=== PATIENT | female | born 1995 | race Caucasian/White ===

== ENCOUNTER 2021-11-10 05:49 | Emergency (ER) | payer OTHER ==
--- OUTSIDE RECORDS SUMMARY | 2021-11-10 05:52 | XMS REPORT | Continuity of Care Document ---
:1995 Author Organization [facility] t Address [address] [place] [address] Care Team Providers Name Role Phone Nicolle Campbell Primary Care Physician NICOLLE CAMPBELL Attending Clinician Unavailable Abiel ALBARADO, Luis Carlos Attending Clinician Unavailable Only, Db Test Attending Clinician Unavailable Cassie SNOWBOARD INSTRUCTOR, J Attending Clinician KIET ROSSI Attending Clinician Unavailable Nicolle Campbell Attending Clinician Lab, Fam Pob I Attending Clinician Unavailable Griffin MATTHEWS Attending Clinician Unavailable Doctor Unassigned, Name Attending Clinician Unavailable PAPI MOLINA Attending Clinician Unavailable SINA LOWERY Attending Clinician Unavailable Dangelo BELLO Attending Clinician Tech, Cardio Fac Attending Clinician Unavailable 1, Cardio Fac Room Attending Clinician Unavailable Lico BELLO, K.H. Attending Clinician NICOLLE CAMPBELL Admitting Clinician Unavailable PAPI MOLINA Admitting Clinician Unavailable Payers Payer Name Policy Type Policy Number Effective Date Expiration Date Jeffrey cloud [employer] II [id number] 2018 00:00:00 Problems Condition Condition Condition Status Onset Resolution Last Treating Co mments Source Name Details Category Date Date Treatment Clinician Date Endometrio Endometrio Disease Active U nivers sis sis 6-06 ity of 00:00: [place] 00 [facility] Allergic Allergic Disease Active 2015-07 Unive rs contact contact 0-13 ity of dermatitis dermatitis [place] , , 00 Medical unspecifie unspecifie Br anch d trigger d trigger Acne Acne Disease Active Univers vulgaris vulgaris 2-03 ity of 00:00: [place] 00 [facility] Allergies, Adverse Reactions, Alerts Allergy Allergy Status Severity Reaction(s) Onset Inactive Treating Comm ents Source Name Type Date Date Clinician Sulfa Propensi Active Nausea 2014-07 Univers (Sulfona ty to and/or 1-17 ity of mide adverse Vomiting 00:00: [place] Antibiot reaction 00 Medica l ics) s Branch SULFA Drug Active N/V 2014-07 Univers (SULFONA Class 1-17 ity of MIDE 00:00: [place] ANTIBIOT 00 Medical ICS) Branch Social History Social Habit Start Date Stop Date Quantity Comments Source Exposure to Yes [facility] SARS-CoV-2 [facility] (event) [place] Tobacco use and 2019-06-29 2019-06-29 Never used Universit y of exposure 00:00:00 00:00:00 [facility] Alcohol intake 2019-06-29 2019-06-29 Current drinker Unive rsity of 00:00:00 00:00:00 of alcohol [facility] (finding) [place] Alcohol Comment 2016-02-20 2016-02-20 occ Universit y of 00:00:00 00:00:00 [facility] Sex Assigned At [birth year] [facility] 00:00:00 00:00:00 Smoking Status Start Date Stop Date Source [facility] Medications Ordered Filled Start Stop Current Ordering Indication Dosage Frequency Signature Comments Components Source Medication Medication Date Date Medication? Clinician (SIG) Name Name sulfur 2020-0 2020- No 5mL Univers hexafluorid 07-28 ity of e microsphr 17:15: 14:45 [place] (LUMASON) 00 :00 Medical injection 5 Branch mL sulfur 2020-0 2020- No 5mL 5 mL, Univers hexafluorid 07-28 Intravenou i ty of e microsphr 17:15: 14:45 s, ONCE, 1 [place] (LUMASON) 00 :00 dose, Wed Medic al injection 5 07/28/19 at Br anch mL 1115, Routine levonorgest 2018-07 Yes 1{tbl} Take 1 Tab Univers rel-ethinyl 2-17 by mouth ity of estradiol 21:56: daily. [place] ([place] [id number],) 0.1-20 Branch mg-mcg per tablet levonorgest 2018-07 Yes 1{tbl} Take 1 Tab Univers rel-ethinyl 2-17 by mouth ity of estradiol 21:56: daily. [place] ([place] [address],) 0.1-20 Branch mg-mcg per tablet levonorgest 2018-07 Yes 1{tbl} Take 1 Tab Univers rel-ethinyl 2-17 by mouth ity of estradiol 21:56: daily. [place] ([place] [address],) 0.1-20 Branch mg-mcg per tablet levonorgest 2018-07 Yes 1{tbl} Take 1 Tab Univers rel-ethinyl 2-17 by mouth ity of estradiol 21:56: daily. [place] ([place] [address],) 0.1-20 Branch mg-mcg per tablet levonorgest 2018-07 Yes 1{tbl} Take 1 Tab Univers rel-ethinyl 2-17 by mouth ity of estradiol 21:56: daily. [place] ([place] [address],) 0.1-20 Branch mg-mcg per tablet levonorgest 2018-07 Yes 1{tbl} Take 1 Tab Univers rel-ethinyl 2-17 by mouth ity of estradiol 21:56: daily. [place] ([place] [address],) 0.1-20 Branch mg-mcg per tablet levonorgest 2018-07 Yes 1{tbl} Take 1 Tab Univers rel-ethinyl 2-17 by mouth ity of estradiol 21:56: daily. [place] ([place] [address],) 0.1-20 Branch mg-mcg per tablet Immunizations Ordered Filled Immunization Date Status Comments [facility] e Immunization Name Name Influenza Virus 2019-02-11 Completed Universit y of Vaccine 00:00:00 [facility] Influenza Virus 2019-02-11 Completed Universit y of Vaccine 00:00:00 [facility] Influenza Virus 2019-02-11 Completed Universit y of Vaccine 00:00:00 [facility] Influenza Virus 2019-02-11 Completed Universit y of Vaccine 00:00:00 [facility] Influenza Virus 2019-02-11 Completed Universit y of Vaccine 00:00:00 [facility] Influenza Virus 2019-02-11 Completed Universit y of Vaccine 00:00:00 [facility] Influenza Virus 2019-02-11 Completed Universit y of Vaccine 00:00:00 [facility] TDAP 2007-07-14 Completed University of 00:00:00 [facility] TDAP 2007-07-14 Completed University of 00:00:00 [facility] Tdap 2007-07-14 Completed University of 00:00:00 [facility] Tdap 2007-07-14 Completed University of 00:00:00 [facility] TDAP 2007-07-14 Completed University of 00:00:00 [facility] TDAP 2007-07-14 Completed University of 00:00:00 [facility] TDAP 2007-07-14 Completed University of 00:00:00 [facility] Vital Signs Vital Name Observation Time Observation Value Comments Source Systolic blood 2019-07-28 14:10:00 117 mm[Hg] Univer sity [facility] Diastolic blood 2019-07-28 14:10:00 81 mm[Hg] [facility] Heart rate 2019-07-28 14:10:00 67 /min [facility] Body height 2019-07-28 14:10:00 167.6 cm [facility] Body weight 2019-07-28 14:10:00 58.06 kg [facility] BMI 2019-07-28 14:10:00 20.66 kg/m2 [facility] Procedures Procedure Date / Time Performed Performing Clinician Sour e CHG US BREAST UNI 2021-01-09 13:35:00 Glory Campbell [facility] REAL TIME WITH IMAGE [facility] LIMITED ECHO ROUTINE 2019-07-28 14:07:52 Dangelo [facility] o f [place] W/DOPPLER COLOR [facility] Branch Encounters Start End Encounter Admission Attending Care Care Encounter Source Date/Time Date/Time Type Type Clinicians Facility Department ID 2020-04-08 Inpatient SHANNAN [facility] [id number] [facility] 14:54:47 , GLORY 2021-03-24 2021-03-24 Telephone SOMMER Beebe [id number] Univers 00:00:00 00:00:00 Paty Aldridge BLAKE [id number] i ty of [facility] [id number] [place] as [phone] [address] 2021-03-22 2021-03-22 Laboratory Only, Jani Db Test [facility] [id number] Univers 18:01:52 18:11:52 Only Laura Matthews [facility] [id number] ity of [place] [id number] Edgar as Pepe?Blea [phone] Nc diczoraida ey [address] [place] [facility] 2021-03-22 2021-03-22 Outpatient R [facility] [id number] Univers 17:55:00 17:55:00 [id number] ity [facility] 2021-03-22 2021-03-22 Outpatient R [facility] [id number] Univers 17:55:00 17:55:00 ity [facility] 2021-02-27 2021-02-27 [facility] [id number] Univers 09:15:00 09:15:00 MICHEAL [id number] [facility] 2021-02-27 2021-02-27 [facility] [id number] Univers 09:15:00 09:15:00 [facility] 2021-01-08 2021-01-08 EXT [facility] Shannan EXT MSRDP [id number] [place] 00:00:00 00:00:00 , Glory GARCIA [id number] Health [facility] [id number] 2020-09-20 2020-09-20 Laboratory Lab, Adc Fam Pob I [facility] [id number] Univers 18:19:44 18:39:44 Only Laura Matthews [facility] [id number] ity of [place] [id number] Edgar as Professio [id number] [address] Office [address] 2020-09-20 2020-09-20 Outpatient R [facility] [id number] Univers 18:20:00 18:20:00 [id number] ity of [facility] 2020-09-20 2020-09-20 Outpatient R CASSIE, [facility] [id number] Univers 18:20:00 18:20:00 LAURA ity o f [facility] 2020-09-20 2020-09-20 Letter Doctor SOMMER [id number] Univers 00:00:00 00:00:00 (Out) Unassigned, BLAKE [id number] ity of [place] [facility] [id number] Edgar as [phone] [address] 2020-04-08 2020-04-10 Inpatient E TRACY, [facility] [id number] [facility] 16:24:00 14:50:00 DAISHA 2020-02-07 2020-02-08 Emergency E BEVERLEY, [facility] [id number] [facility] 21:27:00 01:51:00 LINDSEY 2019-06-29 2019-08-06 Office Dangelo, [facility] [id number] Univers 16:47:15 10:00:55 Visit Samantha Stephen [id number] ity of [place] [id number] [place] Professio [phone] [place] [id number] [facility] 2019-07-28 2019-07-28 Junior Art Director, Adc Cardio Fac [facility] [id number] Univers 07:48:17 08:50:51 Only 1, Adc Cardio Fac [facility] [id number]. [id number] ity of [place] [id number] [place] Professio [phone] [place] [id number] [facility] Results This patient has no known results.
[2021-11-10 06:23] LABS: Urine Blood Negative (Negative); Urine Glucose Negative (Negative); Urine Protein Negative (Negative); Urine Specific Gravity <=1.005 (1.005-1.030); Urine pH 5.5 (5.0-7.0)
[2021-11-10 06:59] LABS: Urine Specific Gravity/Preg 1.005 (1.005-1.030)
[2021-11-10 07:03] LABS: Absolute Lymphocytes (CBC) 2.1 K/uL (0.7-4.9); Hematocrit 42.9 % (36.0-45.0); Lymphocytes % 46.8 % (15.3-44.8); MPV 8.2 fL (7.6-11.3); RBC Red Blood Cell Count 4.77 M/uL (3.86-4.86)
[2021-11-10] MEDS ORDERED: ONDANSETRON 4 MG/2 ML VIAL ONE (07:15)
[2021-11-10] MEDS ORDERED: NA CHLORIDE 0.9% 500 ML ONE (07:15)
[2021-11-10] MEDS ORDERED: MORPHINE 4 MG/ML SYR ONE (07:15)
[2021-11-10 07:16] LABS: Albumin 4.1 g/dL (3.4-5.0); Bilirubin Total 0.5 mg/dL (0.2-1.0); Potassium 3.9 mmol/L (3.5-5.1); Protein, Total 7.8 g/dL (6.4-8.2)
[2021-11-10] MEDS ORDERED: FENTANYL CITR 100 MCG/2 ML ONE (07:57)
--- NOTE | 2021-11-10 09:47 | RAD REPORT ---
EXAM DESCRIPTION: CT - Abdomen Pelvis W Contrast - 11/10/2021 7:34 am CLINICAL HISTORY: LLQ abdominal pain COMPARISON: No comparisons TECHNIQUE: Biphasic, helical CT imaging of the abdomen and pelvis was performed following 100 ml non -ionic IV contrast. No oral contrast administered. All CT scans are performed using dose optimization technique as appropriate and may include automated exposure control or mA/KV adjustment according to patient size. FINDINGS: No suspicious findings in the lung bases. The liver, spleen, and pancreas show no suspicious findings. Gallbladder is absent. There is mild int rahepatic and extrahepatic biliary tree dilatation. Degree of dilatation is not outside of normal ran ge for a post cholecystectomy patient. Duct stones can be occult. Provided history does not indicate that there are any right upper quadrant or biliary obstructive symptoms. Symmetric renal function is seen with no hydronephrosis or suspicious renal mass. No pyelonephritis o r acute parenchymal process. No bladder abnormalities. No adrenal abnormalities. No uterine abnormality seen. Small cysts or follicles are seen on the normal sized ovaries. The ovari es are isodense to adjacent fluid-filled small bowel. A dominant ovarian or adnexal process is not molina spected. History indicates prior endometriosis. Endometriosis cannot be accurately diagnosed with CT imaging. No endometrioma is identified. No gastric dilatation or gastric wall thickening. Numerous fluid-filled nondilated small bowel loops are present. A large amount of stool distends the cecum which is positioned along the midline floor t he pelvis. The appendix is not a clearly distinguishable structure. No indirect evidence for appendic itis. Stool fills but does not dilate the colon from the cecum through the descending colon. Slight w all thickening in the proximal sigmoid colon is believed to be peristalsis artifact. No free air, free fluid or inflammatory stranding. No hernia, mass or bulky lymphadenopathy. No suspicious bony findings. IMPRESSION: Contrast enhanced CT abdomen and pelvis showing no acute or emergent finding. The stool distended cecum is positioned on the floor the pelvis in the appendix cannot be clearly dis tinguished. No indirect evidence for appendicitis on CT imaging. No endometrioma or acute SLEEVER finding. Endometriosis can be present an occult on CT imaging. No acute finding. Constipation pattern is evident in the fluid-filled small bowel loops may be secondary to the large c olonic stool volume or could be a nonspecific enteritis.
--- NOTE | 2021-11-10 10:07 | ER ---
Nurse's Notes [facility] Name: Brigid Portillo Age: 26 yrs Sex: Female : 1995 Arrival Date: 11/10/2021 Time: 05:53 Bed 14 Private MD: Diagnosis: Lower abdominal pain, unspecified;Constipation Presentation: 11/10 06:17 Chief complaint: Patient states: she is having lower abdominal and pelvic pain pt bb states she has severe endometriosis denies vomiting or diarrhea but does have constipation despite OTC remedies. Coronavirus screen: At this time, the client does not indicate any symptoms associated with coronavirus-19. Ebola Screen: No symptoms or risks identified at this time. Initial Sepsis Screen: Does the patient meet any 2 criteria? No. Patient's initial sepsis screen is negative. Does the patient have a suspected source of infection? No. Patient's initial sepsis screen is negative. Risk Assessment: Do you want to hurt yourself or someone else? Patient reports no desire to harm self or others. Onset of symptoms was October 2021. 06:17 Method Of Arrival: Ambulatory bb 06:17 Acuity: DENILSON 3 bb Triage Assessment: 06:32 General: Appears in no apparent distress. Behavior is appropriate for age. ke1 [employer]: 06:20 LMP 10/28/2021 bb Historical: - Home Meds: 06:20 BCP [Active]; bb - PMHx: 06:20 Endometriosis of vagina; bb - PSHx: 06:20 section; Tonsillectomy; Cholecystectomy; hip surgery; laproscopy of abdomen; bb dental; - Immunization history:: Client reports receiving the 2nd dose of the Covid vaccine, Pfizer. - Social history:: Smoking status: Patient denies any tobacco usage or history of. Screenin:29 Abuse screen: Denies threats or abuse. Nutritional screening: No deficits noted. ke1 Tuberculosis screening: No symptoms or risk factors identified. Fall Risk No fall in past 12 months (0 pts). No secondary diagnosis (0 pts). IV access (20 points). Ambulatory Aid- None/Bed Rest/Nurse Assist (0 pts). Gait- Normal/Bed Rest/Wheelchair (0 pts) Mental Status- Oriented to own ability (0 pts). Assessment: 06:28 Pain: Complains of pain in pelvis Pain currently is 5 out of 10 on a pain scale. at ke1 worst was 8 out of 10 on a pain scale. level that patient reports is acceptable is 5 out of 10 on a pain scale. GI: Bowel sounds present X 4 quads. Abd is soft Abdomen is tender to palpation in suprapubic area, right lower quadrant and left lower quadrant. 07:04 General: Appears in no apparent distress. uncomfortable, Behavior is calm, cooperative, jd3 appropriate for age. Pain: Complains of pain in right lower quadrant and left lower quadrant Quality of pain is described as crampy, sharp. Neuro: Level of Consciousness is awake, alert, obeys commands, Oriented to person, place, time, situation. Cardiovascular: Denies chest pain, Capillary refill < 3 seconds Patient's skin is warm and dry. Respiratory: Airway is patent Respiratory effort is even, unlabored, Respiratory pattern is regular, symmetrical, Denies cough, shortness of breath. GI: Abdomen is flat, non-distended, Abd is soft X 4 quads Abdomen is tender to palpation in right lower quadrant and left lower quadrant. : No signs and/or symptoms were reported regarding the genitourinary system. EENT: No signs and/or symptoms were reported regarding the EENT system. Derm: Skin is intact, Skin is dry, Skin is normal, Skin temperature is warm. Musculoskeletal: Circulation, motion, and sensation intact. Range of motion: intact in all extremities. 07:58 Reassessment: Patient appears in no apparent distress at this time. Patient and/or jd3 family updated on plan of care and expected duration. Pain level reassessed. Patient is alert, oriented x 3, equal unlabored respirations, skin warm/dry/pink. pt reporting continued pain. provider notified. new medication order received, see MAR. 09:07 Reassessment: Patient appears in no apparent distress at this time. Patient and/or jd3 family updated on plan of care and expected duration. Pain level reassessed. Patient is alert, oriented x 3, equal unlabored respirations, skin warm/dry/pink. Patient states feeling better. 10:02 Reassessment: Patient appears in no apparent distress at this time. Patient and/or jd3 family updated on plan of care and expected duration. Pain level reassessed. Patient is alert, oriented x 3, equal unlabored respirations, skin warm/dry/pink. provider at beside discussing results and plan of care. Vital Signs: 06:17 BP 141 / 96; Pulse 82; Resp 16 S; Temp 98.3(TE); Pulse Ox 100% on R/A; Weight 58.97 kg bb (R); Height 5 ft. 6 in. (167.64 cm) (R); Pain 5/10; 06:34 BP 130 / 80; Pulse 98; Resp 18; Pulse Ox 100% on R/A; ke1 07:06 BP 122 / 87; Pulse 89; Resp 18 S; Pulse Ox 100% on R/A; jd3 08:18 BP 110 / 71; Pulse 66; Resp 16 S; Pulse Ox 100% on R/A; jd3 08:53 Pain 4/10; jd3 09:07 BP 103 / 57; Pulse 59; Resp 15 S; Pulse Ox 100% on R/A; jd3 10:03 BP 103 / 57; Pulse 62; Resp 16 S; Pulse Ox 100% on R/A; jd3 06:17 Body Mass Index 20.98 (58.97 kg, 167.64 cm) ED Course: 05:53 Patient arrived in ED. kz 06:19 Evangelina Mesa RN is Primary Nurse. ke1 06:19 Triage completed. bb 06:20 Arm band placed on Patient placed in an exam room, on a stretcher, on pulse oximetry. bb 06:25 Inserted saline lock: 20 gauge in right antecubital area, using aseptic technique. ke1 ,using aseptic technique. BY Vera Graham RN. 06:32 Bed in low position. Call light in reach. ke1 06:39 Jimmie Miller MD is Attending Physician. mh7 07:02 Attending Physician role handed off by Jimmie Miller MD kdr 07:02 Sandro Diallo MD is Attending Physician. kdr 07:04 Primary Nurse role handed off by Evangelina Mesa, VERENA jd3 07:04 Vipul Fulton, VERENA is Primary Nurse. jd3 07:07 ED physician to see patient. jd3 07:36 CT Abd/Pelvis - IV Contrast Only In Process Unspecified. EDMS 10:06 Rob Stevens MD is Referral Physician. kdr 10:20 No provider procedures requiring assistance completed. IV discontinued, intact, jd3 bleeding controlled, No redness/swelling at site. Pressure dressing applied. Administered Medications: 07:15 Drug: morphine 4 mg Route: IVP; Site: right antecubital; jd3 07:55 Follow up: Response: No adverse reaction; Pain is unchanged, physician notified; RASS: jd3 Alert and Calm (0) 07:15 Drug: Zofran (Ondansetron) 4 mg Route: IVP; Site: right antecubital; jd3 07:55 Follow up: Response: No adverse reaction jd3 07:15 Drug: NS 0.9% 500 ml Route: IV; Rate: bolus; Site: right antecubital; jd3 07:55 Follow up: Response: No adverse reaction; IV Status: Completed infusion; IV Intake: jd3 500ml 07:58 Drug: fentaNYL (PF) 25 mcg Route: IVP; Site: right antecubital; jd3 08:53 Follow up: Pain 4/10 Adult; Response: No adverse reaction; Pain is decreased; RASS: jd3 Alert and Calm (0) Intake: 07:55 IV: 500ml; Total: 500ml. jd3 Outcome: 10:06 Discharge ordered by . kdr 10:20 Discharged to home ambulatory, with family. jd3 10:20 Condition: stable 10:20 Discharge instructions given to patient, Instructed on discharge instructions, follow up and referral plans. Demonstrated understanding of instructions, follow-up care. 10:21 Patient left the ED. jd3 Signatures: Dispatcher [employer] EDMS Sandro Diallo MD MD kdr Ballard, Brenda RN RN Vipul Garrett RN RN jd3 Holmes, Maurice, MD MD 7 Evangelina Mesa RN RN Liseth Mejia
--- NOTE | 2021-11-10 10:07 | EDPHYS ---
Physician Documentation [facility] Name: Brigid Portillo Age: 26 yrs Sex: Female : 1995 Arrival Date: 11/10/2021 Time: 05:53 Bed 14 Private MD: ED Physician Sandro Diallo HPI: 11/10 08:19 This 26 yrs old Female presents to ER via Ambulatory with complaints of Abdominal Pain. kdr 08:19 The patient presents with abdominal pain in the left lower quadrant. Onset: The kdr symptoms/episode began/occurred yesterday. The symptoms do not radiate. Associated signs and symptoms: none. The symptoms are described as achy, crampy, intermittent, vague. Modifying factors: The symptoms are alleviated by nothing, the symptoms are aggravated by touching the area, walking. Severity of pain: At its worst the pain was moderate severe just prior to arrival, in the emergency department the pain is unchanged. The patient has experienced similar episodes in the past, She has been evaluated for endometriosis with Dr. Ralph. She is also had current bowel issues. The patient has not recently seen a physician. LEGAL COUNSEL: 06:20 LMP 10/28/2021 bb Historical: - Home Meds: 06:20 BCP [Active]; bb - PMHx: 06:20 Endometriosis of vagina; bb - PSHx: 06:20 section; Tonsillectomy; Cholecystectomy; hip surgery; laproscopy of abdomen; bb dental; - Immunization history:: Client reports receiving the 2nd dose of the Covid vaccine, Pfizer. - Social history:: Smoking status: Patient denies any tobacco usage or history of. ROS: 08:19 Constitutional: Negative for fever, chills, and weight loss, Eyes: Negative for injury, kdr pain, redness, and discharge, Neck: Negative for injury, pain, and swelling, Cardiovascular: Negative for chest pain, palpitations, and edema, Respiratory: Negative for shortness of breath, cough, wheezing, and pleuritic chest pain, Back: Negative for injury and pain, : Negative for injury, bleeding, discharge, and swelling, MS/Extremity: Negative for injury and deformity, Skin: Negative for injury, rash, and discoloration, Neuro: Negative for headache, weakness, numbness, tingling, and seizure activity. Psych: Negative for depression, anxiety, suicide ideation, homicidal ideation, and hallucinations, Allergy/Immunology: Negative for hives, rash, and allergies, Endocrine: Negative for neck swelling, polydipsia, polyuria, polyphagia, and marked weight changes, Hematologic/Lymphatic: Negative for swollen nodes, abnormal bleeding, and unusual bruising. 08:19 Abdomen/GI: Positive for abdominal pain, nausea, Negative for diarrhea, constipation, abdominal cramps, abdominal distension, anorexia, black/tarry stool, rectal pain, rectal bleeding, bowel incontinence. Exam: 08:19 Constitutional: This is a well developed, well nourished patient who is awake, alert, kdr and in no acute distress. Head/Face: Normocephalic, atraumatic. Eyes: Pupils equal round and reactive to light, extra-ocular motions intact. Lids and lashes normal. Conjunctiva and sclera are non-icteric and not injected. Cornea within normal limits. Periorbital areas with no swelling, redness, or edema. Neck: Trachea midline, no thyromegaly or masses palpated, and no cervical lymphadenopathy. Supple, full range of motion without nuchal rigidity, or vertebral point tenderness. No Meningismus. Chest/axilla: Normal chest wall appearance and motion. Nontender with no deformity. No lesions are appreciated. Cardiovascular: Regular rate and rhythm with a normal S1 and S2. No gallops, murmurs, or rubs. Normal PMI, no JVD. No pulse deficits. Respiratory: Lungs have equal breath sounds bilaterally, clear to auscultation and percussion. No rales, rhonchi or wheezes noted. No increased work of breathing, no retractions or nasal flaring. Back: No spinal tenderness. No costovertebral tenderness. Full range of motion. Skin: Warm, dry with normal turgor. Normal color with no rashes, no lesions, and no evidence of cellulitis. MS/ Extremity: Pulses equal, no cyanosis. Neurovascular intact. Full, normal range of motion. Neuro: Awake and alert, GCS 15, oriented to person, place, time, and situation. Cranial nerves II-XII grossly intact. Motor strength 5/5 in all extremities. Sensory grossly intact. Cerebellar exam normal. Normal gait. Psych: Awake, alert, with orientation to person, place and time. Behavior, mood, and affect are within normal limits. 08:19 Abdomen/GI: Inspection: abdomen appears normal, Bowel sounds: diminished, in all quadrants, Palpation: soft, mild abdominal tenderness, in the left lower quadrant. Vital Signs: 06:17 BP 141 / 96; Pulse 82; Resp 16 S; Temp 98.3(TE); Pulse Ox 100% on R/A; Weight 58.97 kg bb (R); Height 5 ft. 6 in. (167.64 cm) (R); Pain 5/10; 06:34 BP 130 / 80; Pulse 98; Resp 18; Pulse Ox 100% on R/A; ke1 07:06 BP 122 / 87; Pulse 89; Resp 18 S; Pulse Ox 100% on R/A; jd3 08:18 BP 110 / 71; Pulse 66; Resp 16 S; Pulse Ox 100% on R/A; jd3 08:53 Pain 4/10; jd3 09:07 BP 103 / 57; Pulse 59; Resp 15 S; Pulse Ox 100% on R/A; jd3 10:03 BP 103 / 57; Pulse 62; Resp 16 S; Pulse Ox 100% on R/A; jd3 06:17 Body Mass Index 20.98 (58.97 kg, 167.64 cm) bb MDM: 08:19 Data reviewed: vital signs, nurses notes, lab test result(s), radiologic studies. kdr Counseling: I had a detailed discussion with the patient and/or guardian regarding: the historical points, exam findings, and any diagnostic results supporting the discharge/admit diagnosis, lab results, radiology results, the need for outpatient follow up. 10:06 Patient medically screened. kdr 11/10 06:23 Order name: Urine Dipstick-Ancillary; Complete Time: 09:36 EDMS 11/10 06:24 Order name: Urine --Ancillary (enter results); Complete Time: 09:36 ds4 11/10 06:54 Order name: CBC with Diff; Complete Time: 09:36 bb 11/10 06:54 Order name: CMP; Complete Time: 09:36 bb 11/10 06:54 Order name: Lipase; Complete Time: 09:36 bb 11/10 07:11 Order name: CT Abd/Pelvis - IV Contrast Only; Complete Time: 09:54 kdr 11/10 06:54 Order name: IV Saline Lock; Complete Time: 07:00 bb 11/10 06:54 Order name: Labs collected and sent; Complete Time: 07:07 bb Administered Medications: 07:15 Drug: morphine 4 mg Route: IVP; Site: right antecubital; jd3 07:55 Follow up: Response: No adverse reaction; Pain is unchanged, physician notified; RASS: jd3 Alert and Calm (0) 07:15 Drug: Zofran (Ondansetron) 4 mg Route: IVP; Site: right antecubital; jd3 07:55 Follow up: Response: No adverse reaction jd3 07:15 Drug: NS 0.9% 500 ml Route: IV; Rate: bolus; Site: right antecubital; jd3 07:55 Follow up: Response: No adverse reaction; IV Status: Completed infusion; IV Intake: jd3 500ml 07:58 Drug: fentaNYL (PF) 25 mcg Route: IVP; Site: right antecubital; jd3 08:53 Follow up: Pain 4/10 Adult; Response: No adverse reaction; Pain is decreased; RASS: jd3 Alert and Calm (0) Disposition Summary: 11/10/21 10:06 Discharge Ordered Location: Home kdr Condition: Stable kdr Problem: new kdr Symptoms: have improved kdr Diagnosis - Lower abdominal pain, unspecified kdr - Constipation kdr Followup: kdr - With: Private Physician - When: 2 - 3 days - Reason: If symptoms return, Further diagnostic work-up, Recheck today's complaints, Continuance of care, Re-evaluation by your physician Followup: kdr - With: Rob Stevens MD - When: 2 - 3 days - Reason: If symptoms return, Further diagnostic work-up, Recheck today's complaints, Continuance of care, Re-evaluation by your physician Discharge Instructions: - Discharge Summary Sheet kdr - Constipation, Adult, [id number] kdr - Abdominal Pain, Adult, [id number] kdr Forms: - Medication Reconciliation Form kdr - Thank You Letter kdr Signatures: Dispatcher [employer] Sandro Benoit MD MD kdr Vera Hall, RN RN bb Vipul Fulton RN RN jd3
[2021-11-10 10:34] VITALS: TEMP 98.3; O2SAT 100
[2021-11-10 10:40] VITALS: BP 103/57
== END 2021-11-10 10:21 | disposition home or self-care (01) ==
LOC: ER 05:49
DX: K59.00 Constipation, unspecified (principal)
CPT/HCPCS: 96361; 85025; 36415; 81025; 81003; 83690; 80053; 74177; 96375; 96374; 99284; Q9967; J3010; J7040; J2405

== ENCOUNTER 2022-07-30 06:09 | Day surgery (SDC) | payer BC ==
[2022-07-25 15:17] LABS: Hematocrit 39.8 % (36.0-45.0); Lymphocytes % 43.9 % (15.3-44.8); MCV 89.1 fL (80-100); MPV 7.8 fL (7.6-11.3); RBC Red Blood Cell Count 4.46 M/uL (3.86-4.86)
[2022-07-25 15:30] LABS: Specific Gravity 1.024 (1.005-1.030); Urine Bacteria <20 /HPF (<20); Urine Bilirubin NEGATIVE (Negative); Urine Blood Negative (Negative); Urine Clarity Clear (Clear); Urine Color Light-Yellow (Yellow); Urine Glucose NEGATIVE (Negative); Urine Mucus Slight /HPF (None Seen); Urine Protein TRACE (Negative); Urine RBC <5 /HPF (None Seen); Urine Urobilinogen Normal (Normal); Urine WBC Clump Rare /HPF (None Seen)
[2022-07-30] MEDS ORDERED: SCOPOLAMINE HYDROBROMIDE PATCH TD ONE (06:16)
[2022-07-30] MEDS ORDERED: Ringers Lactate 1,000 ML IV ONE (06:16)
[2022-07-30 06:45] VITALS: O2SAT 100
[2022-07-30] MEDS ORDERED: propofoL 200 MG/20 ML VIAL IV ONE ×3 (06:48→08:47)
[2022-07-30] MEDS ORDERED: FENTANYL CITR 250 MCG/5 ML ONE (06:49)
[2022-07-30] MEDS ORDERED: MIDAZOLAM HCL 2 MG/2 ML INJ ONE (06:49)
[2022-07-30] MEDS ORDERED: LIDOCAINE 2% MPF 5 ML VIAL ONE (06:49)
[2022-07-30] MEDS ORDERED: CELECOXIB 100 MG CAPSULE ONE (06:49)
[2022-07-30] MEDS ORDERED: dexAMETHasone 10 MG/ML VIAL ONE (06:49)
[2022-07-30] MEDS ORDERED: ONDANSETRON 4 MG/2 ML VIAL ONE ×2 (06:49→09:35)
[2022-07-30] MEDS ORDERED: ROCURONIUM 50 MG/5 ML VIAL IV ONE (06:49)
[2022-07-30] MEDS ORDERED: ACETAMINOPHEN 500 MG TAB ONE (06:50)
[2022-07-30] MEDS: CEFOXITIN SODIUM 1 GM/VIAL ONE ×2 (07:48→08:00)
[2022-07-30] MEDS: BUPIVACAINE 0.25% PF 30 ML VIAL ONE ×2 (07:49→08:09)
[2022-07-30] MEDS ORDERED: METHYLENE BLUE 0.5% 10 ML AMP ONE (08:10)
--- NOTE | 2022-07-30 08:44 | P.OP ---
Date of Service: 07/30/22 Preop diagnosis: Chronic abdominal pain Postop diagnosis: Same Procedure performed: Diagnostic laparoscopy, laparoscopic appendectomy Surgeon: Arnold Mcduffie MD Mate Fishing Vessel: Dr. Camila Butler MD Estimated blood loss: Minimal Specimen: Appendix Findings: As above Anesthesia: General Complications: None Drains: None Fluids and blood products: Nonapplicable Disposition: Dr. Butler continued with a diagnostic laparoscopy for endometrial disease and pelvic adhesions Operative note: Patient brought to the OR placed in the supine position. General anesthesia begun. Patient prepped and draped in usual sterile fashion. Patient was put into lithotomy position by Dr. Pittman for her part of the procedure. Marcaine 0.5% infiltrated locally. 15 blade used to make a 1 cm infraumbilical midline incision. Subcutaneous tissue divided. Fascia identified and divided. #1 Vicryl stay suture placed. Peritoneal cavity e ntered with sharp and blunt dissection. 12 mm trocar placed into the peritoneal cavity under direct vision. 2 5 mm trochars placed into the peritoneal cavity. 1 at the suprapubic region and the other 1 in the left lower quadrant. Laparoscopy revealed some pelvic adhesions. The appendix was in the right lower quadrant. There was no acute inflammation seen. However, given the patient's history a appendectomy was planned upon. Base of the appendix and the mesoappendix clearly identified. Endo SAM stapling device used to divide both structures. Bleeding on the mesoappendix controlled with the vascular clip. Right lower quadrant irrigated. Effluent clear. No evidence of bowel injury or bleeding noted. Dr. Butler will dictate the remaining part of this procedure. CC: Dr. Butler's office
[2022-07-30] MEDS ORDERED: KETOROLAC 30 MG/ML INJ ONE (08:59)
[2022-07-30] MEDS ORDERED: GLYCOPYRROLATE 0.2 MG/ML SYR ONE (08:59)
[2022-07-30] MEDS ORDERED: NEOSTIGMINE 1 MG/ML -5 ML ONE (09:00)
[2022-07-30] MEDS: FENTANYL CITR 100 MCG/2 ML ONE ×2 (09:37→09:57)
[2022-07-30] MEDS ORDERED: IBUPROFEN 200 MG TAB PO PRN (09:39)
[2022-07-30] MEDS ORDERED: PROMETHAZINE INJ 25 MG/ML AMP IV PRN (09:39)
[2022-07-30] MEDS ORDERED: HYDROCODONE/APAP 5/325 MG TAB PO PRN (09:39)
[2022-07-30] MEDS ORDERED: MEPERIDINE HCL 25 MG/ML SYR IM PRN (09:39)
[2022-07-30] MEDS ORDERED: MEPERIDINE HCL 25 MG/ML SYR ONE (09:40)
--- NOTE | 2022-07-30 09:47 | P.BOP ---
Preoperative diagnosis: pelvic pain, h/o endometriosis Postoperative diagnosis: same , left partial tubal occlusion, adhesions Primary procedure: Diag hysteroscopy,laparoscopy,Left salpingolysis, chromotubation Secondary procedure: endo excision, fulgration Other procedure(s): Anay Mcduffie Site Supervising Technical Operator: Nyasia Barron Estimated blood loss: min Specimen: left lat wall, rt USL, left tubal adhesion, appy Findings: scar/mild brownish peritoneal discolorationleft lat wall, Rt USL Complications: None Transferred to: Recovery Room Condition: Good
[2022-07-30] MEDS ORDERED: POLYETHYL GLY 3350 17 GM/DOSE PO SCH (10:00)
[2022-07-30] MEDS ORDERED: HYDROCODONE/APAP 5/325 MG TAB ONE (10:38)
[2022-07-30 11:29] VITALS: BP 100/57; TEMP 97.2
[2022-07-30] MEDS ORDERED: PSYLLIUM HUSK 0.4 GM PO SCH (21:00)
--- NOTE | 2022-07-31 08:03 | OP ---
Date of Procedure: 07/30/2022 Surgeon: Camila Butler MD Claims Configuration Analyst: Nyasia Flores. Preoperative Diagnosis: Pelvic pain, history of endometriosis. Postoperative Diagnoses: Pelvic pain, history of endometriosis, partial left tubal occlusion, left t ubal adhesions, and bowel adhesions. Procedures Performed: 1.Diagnostic hysteroscopy. 2.Diagnostic laparoscopy, left salpingolysis, chromotubation, endometriosis for exploration and exci rick. Refer and note from Dr. Mcduffie. Anesthesia: General endotracheal. Estimated Blood Loss: Minimal. Specimens: Left lateral wall, left tube, left tubal adhesions. Specimens: 1.Left lateral wall peritoneal implants. 2.Left peritubal adhesions. 3.Right uterosacral peritoneal specimen. 4.Appendix. Complications: No complications. Drains: No drains. Condition: Stable. Findings: 1.On hysteroscopy, cavity was undistorted. No intracavitary masses or signs of inflammation. Both tubal ostia well visualized. 2.On laparoscopy, all prior areas of excision unremarkable. This brownish discoloration of the jolene toneum in areas of deeper brownish discoloration, excision was performed like the left lateral wall, right uterosacral, right pararectal space, very tubal adhesions were taken down and the adhesions wer e sent for permanent pathology. The appendix stump looked hemostatic and complete. 3.On chromotubation, the right tube filled and flushed easily. The left tube did not fill easily fi rst. Then later on, on further pressure with the chromotubation through the VCare through the uterin e manipulator. After the adhesions were taken down, the left tube had flushed, but not as briskly as on the right side, but definitely blue dye was noted. 4.The appendix stump was hemostatic. . Indications For Procedure: The patient is a known patient to the practice with significan t pelvic pain side effects, significant side effects with GnRH antagonist, unable to tolerate this an d now in the past and breast pain has progressed and has been bothersome. GI evaluation w ith upper and lower endoscopy. Then, she had a general surgery consult, which she was advised to hav e the removal of right appendix, then, all of the appendix from the roof of the right lower quadrant pain. Discussed about endometriosis excision or scar tissue excision and chromotubation to _ tube leading to her pain. Description Of Procedure: After informed consent was verified, she was taken back to the OR, placed in supine fashion on the operating table. General anesthesia was given. She was placed in dorsal li thotomy position using Josh stirrups. Antibiotic given preop. She was placed in a dorsal lithotomy position using Josh stirrups. After the anesthesia abdomen, vulva, vagina, and perineum prepped an d draped in a sterile fashion. Speculum placed to expose the cervix and the uterine cavit y with a diagnostic SlimLine hysteroscope. There were no intracavitary lesions, masses, undistorted, non inflamed endometrium. Both tubal ostia visualized. Scope pulled out. Dilated to 16-Nepali yurok rine manipulator introduced without any problems and fixed in place. Arias was placed to drain the b ladder. A 1 cm infraumbilical incision made with a scalpel and excision of the prior scar was done by Dr. Luis messina. The fascia was opened and tagged with 0 Vicryl sutures and within. The Mikaela introduced. Ball oon placed and suprapubic and all the pelvic areas were carefully inspected. There was a slight scar on the right hemidiaphragm close to the falciform at the very apex, but mostly unremarkable upper pe ritoneal surfaces, lower peritoneal surfaces as dictated in the findings. There was scar in the elev ation of the uterine vessels as well as the ureter of the left side more than on the right. There wa s small amount of brownish discoloration that was suspicious for and this was excised. The distal pa rts of the tubes appeared to be swollen on both sides, with left was more than the right. Tubal adhe sions were noted here to the left lateral wall and left uterine vessels. The suprapubic and left lower quadrant ports were placed under direct vision. Please refer to the la p appy for that part of the dictation. The tubal adhesions were left in place first. Then the peritoneal implants that were suspected were all excised, fulgurated as well, first on the left lateral wall, then on the right uterosacral and th en the medial aspect of the right pararectal space medial to the uterosacral, so this was all sent as 1 specimen and labeled right uterosacral. Chromotubation was performed with dilute methylene blue, 1 syringe in 100 cc of normal saline was inj ected through the uterine manipulator. There was a prompt flow of fill and spilled on the right side and was tough on the left side and there was no spill. The adhesions were taken down josep pingo lysis was performed and tubal adhesions were excised and handed off for permanent pathology. Ursula alexander went on to observe the tube. There was a slight flush with blue dye. There were adhe sions of the colon sigmoid to the lateral wall and also the bowel adhesions of the ascending colon ve ry distal and close to the cecum. There were adhesions to the anterior abdominal, so all the implant s were discussed with the LigaSure and then I went ahead and carefully dissected everything out, taki ng great care not to damage any vessels. Once this was all done, thorough irrigation and suction wer e performed. Specimen was placed in an EndoCatch bag and removed. All the specimen, sent for perman ent pathology. Instrument, needle, and sponge, and gas was removed. Trocars were removed under dire ct vision. Site of the incision was injected with 0.25% Marcaine as well as in the other incisions. Once these were done, all the gas was desufflated. The patient break was taken down, gas was taken out, then all the ports were taken down under direct vision. After finishing this, the at tention was directed to scar revision. The scar was excised by Dr. Mcduffie and then I repaired the scar here with 3-0 Vicryl stitch interrupte d and 4-0 Monocryl in a continuous running fashion. All incisions closed and injected with Marcaine at the skin and fascia. All the instrument, needle, and sponge counts were correct. Arias bulb and vaginal bulb were removed. The patient was recovered from anesthesia a nd taken to PACU in stable condition. JAD/GIOVANNAL Voice ID: [id number] Report ID: [id number]
[2022-07-31] MEDS ORDERED: DOCUSATE NA 100 MG CAP PO SCH (09:00)
[2022-07-31] MEDS ORDERED: DOCUSATE NA/SENNA CONC 1 TAB PO SCH (09:00)
[2022-07-31] MEDS ORDERED: E ESTRADIOL E ESTRAD PO SCH (09:00)
[2022-07-31] MEDS ORDERED: NORGEST PO SCH (09:00)
[2022-07-31] MEDS ORDERED: HOME MED 1 EA UNK (L.Acidoph,Paracasei, B.Lactis [Probiotic] Capsule) PO SCH (09:00)
[2022-07-31] MEDS ORDERED: [UNRECOGNIZED DRUG - OTHER] PO SCH (09:00)
== END 2022-07-30 11:23 | disposition home or self-care (01) ==
LOC: OR 06:09
PROVIDERS: ATTEND Obstetrics & Gynecology
PROC: 3E1P88X Irrigation of Female Reproductive using Irrigating Substance, Via Natural or Artificial Opening Endoscopic, Diagnostic (ICD-10-PCS; 2022-07-30)
PROC: 0WBF4ZZ Excision of Abdominal Wall, Percutaneous Endoscopic Approach (ICD-10-PCS; 2022-07-30)
PROC: 0DTJ4ZZ Resection of Appendix, Percutaneous Endoscopic Approach (ICD-10-PCS; principal; 2022-07-30 07:30)
DX: R10.2 Pelvic and perineal pain (principal); K37 Unspecified appendicitis; N80.3C1 Endometriosis of the right uterosacral ligament, unspecified depth; N80.C19 Endometriosis of the anterior abdominal wall, unspecified depth
CPT/HCPCS: 44970; 58555; 58350; 58662; 85025; 81001; 36415; 86900; 86850; 81025; 86901; 88304; 88305; J2704 ×3; J2001; J2250; J3010 ×2; J1100; J2175; J2710; Q9968; J7120; J0694; J2405 ×2; 88302